=== PATIENT | male | born 1995 | race Caucasian/White ===

== ENCOUNTER 2017-06-15 13:02 | Emergency (ER) | payer BC ==
[~2017-06-15] VITALS: Ht 180.3 cm; Wt 77.0 kg
[2017-06-15 13:04] VITALS: TEMP 36.7; Ht 180.3 cm; Wt 77.0 kg
[2017-06-15] MEDS ORDERED: SODIUM CHLORIDE 0.9% 1000ML 1,000 ML IV STA (13:40)
[2017-06-15 14:01] LABS: URINE APPEARANCE CLEAR (CLEAR); URINE BILIRUBIN NEG (NEG); URINE COLOR YELLOW; URINE NITRITE NEG (NEG); URINE SPECIFIC GRAVITY 1.011 (1.000-1.030); UROBILINOGEN NEG (NEG); ZZUR CULT IF INDIC CLEAN CATCH NO
[2017-06-15 14:07] LABS: MANUAL MICROSCOPIC REQUIRED? NO; REVIEW REQ? NO
[2017-06-15 14:39] LABS: BASO % 0.3 %; BASO ABS # 0.02 K/uL (0-0.2); COMPLETE YES; EOS % 0.1 %; HEMATOCRIT 42.2 % (42-52); IG% 0.1 %; LYMPH % 17.6 %; LYMPH ABS # 1.28 K/uL (1.2-3.4); MEAN CELL VOLUME 85.8 fL (80-100); MEAN CORPUSCULAR HEMOGLOBIN 29.3 pg (25-34); MEAN CORPUSCULAR HGB CONC 34.1 g/dl (32-36); MEAN PLATELET VOLUME 12.4 fL (7.4-10.4); MONO % 5.4 %; NEUT % 76.5 %; PLATELET COUNT 197 K/uL (130-400); RED BLOOD COUNT 4.92 M/uL (4.7-6.1); WHITE BLOOD COUNT 7.28 K/uL (4.8-10.8)
--- NOTE | 2017-06-15 14:49 | DIAGNOSTIC IMAGING REPORT ---
ULTRASOUND RIGHT UPPER QUADRANT ABDOMEN CLINICAL HISTORY: Vomiting. COMPARISON STUDY: No priors. TECHNIQUE: Real-time, grayscale, and color flow sonography of the right upper quadrant of the abdomen was performed. Images are reviewed in the transverse and longitudinal planes. FINDINGS: Liver: The liver is normal in size and echotexture. There is no intrahepatic biliary ductal dilatation. The main portal vein is patent. Gallbladder: The gallbladder is normal in appearance. No gallstones are identified. There is no gallbladder wall thickening or pericholecystic fluid. A sonographic Koroma's sign is reportedly absent. The common bile duct measures up to 0.3 cm in diameter. Pancreas: Visualized portions of the pancreatic head and body are normal in appearance. Right kidney: Survey images of the right kidney demonstrate normal size and echotexture. There is no hydronephrosis. Ascites: None. IMPRESSION: Unremarkable sonographic assessment of the right upper quadrant. No gallstones are identified. Electronically signed by: Victor M Tran M.D. 06/15/2017 2:47 PM Dictated Date/Time: 06/15/2017 2:47 PM
[2017-06-15] MEDS ORDERED: NXM/40 PO (15:05)
[2017-06-15] MEDS ORDERED: ONDA4TAB46 PO (15:05)
[2017-06-15] MEDS ORDERED: ZNTT/150 PO (15:05)
--- NOTE | 2017-06-15 15:05 | EMERGENCY ROOM VISIT NOTE ---
History First contact with patient: 13:27 Chief Complaint: GI ASSESSMENT Stated Complaint: STOMACH ISSUES, VOMITING Nursing Triage Summary: pt to the ED after being sent over from [facility] with concern for his gallbladder c/o pain that gets worse after eating and pain is intermittant History of Present Illness The patient is a 21 year old male who presents to the Emergency Room with complaints of vomiting for the past one week. The patient states that he has had nausea and vomiting intermittently for one week. The vomiting is worse in the morning. He states that his stomach has felt queasy, but denies abdominal pain. He has not been able to eat much. He saw his shoeshiner at home before coming to school and they thought he may have reflux. They started him on Zantac and he states he has not had relief with this. His stools have been slightly loose. He denies any fevers/chills, chest pain, shortness of breath, hematemesis, melena, hematochezia or urinary symptoms. He denies any previous abdominal issues or abdominal surgeries. He drinks alcohol occasionally, but denies any recent alcohol intake. He was seen by [facility] this morning and switched from Zantac to Nexium. He was told that if his symptoms do not improve , he should come here for evaluation of his gallbladder. Review of Systems A complete 10 point review of systems was reviewed with the patient with pertinent positives and negatives as per history of present illness. All else were negative. Social History Smoking Status: Never Smoker Alcohol Use: occasionally Marital Status: single Housing Status: lives with roommate Occupation Status: [employer] student Current/Historical Medications Scheduled Esomeprazole Magnesium (Nexium), 40 MG PO DAILY Ranitidine (Zantac), 150 MG PO DAILY Scheduled PRN Ondansetron Hcl (Zofran), 4 MG PO Q8 PRN for Nausea Physical Exam Vital Signs Date Time Temp Pulse Resp B/P (MAP) Pulse Ox O2 Delivery O2 Flow Rate FiO2 06/15/17 15:32 69 149/54 97 Room Air 06/15/17 13:04 36.7 80 18 126/77 98 Room Air Physical Exam VITALS: Vitals are noted on the nurse's note and reviewed by myself. Vital signs stable. GENERAL: This is a 21-year-old male, in no acute distress, nondiaphoretic, well- developed well-nourished. SKIN: Capillary reflex less than 2 seconds. HEENT: Normocephalic. PERRLA. Mucous membranes moist. Neck is supple without nuchal rigidity. HEART: Regular rate and rhythm without murmurs gallops or rubs. LUNGS: Clear to auscultation bilaterally without wheezes, rales or rhonchi. ABDOMEN: Positive bowel sounds x 4. Soft, nontender to palpation. NEURO: Patient was alert and oriented to person place and time. Medical Decision & Procedures ER Provider Diagnostic Interpretation: ULTRASOUND RIGHT UPPER QUADRANT ABDOMEN FINDINGS: Liver: The liver is normal in size and echotexture. There is no intrahepatic biliary ductal dilatation. The main portal vein is patent. Gallbladder: The gallbladder is normal in appearance. No gallstones are identified. There is no gallbladder wall thickening or pericholecystic fluid. A sonographic Koroma's sign is reportedly absent. The common bile duct measures up to 0.3 cm in diameter. Pancreas: Visualized portions of the pancreatic head and body are normal in appearance. Right kidney: Survey images of the right kidney demonstrate normal size and echotexture. There is no hydronephrosis. Ascites: None. IMPRESSION: Unremarkable sonographic assessment of the right upper quadrant. No gallstones are identified. Laboratory Results 06/15/17 13:30 Red Blood Count 4.92, Mean Corpuscular Volume 85.8, Mean Corpuscular Hemoglobin 29.3, Mean Corpuscular Hemoglobin Concent 34.1, Mean Platelet Volume 12.4, Neutrophils (%) (Auto) 76.5, Lymphocytes (%) (Auto) 17.6, Monocytes (%) (Auto) 5.4, Eosinophils (%) (Auto) 0.1, Basophils (%) (Auto) 0.3, Neutrophils # (Auto) 5.57, Lymphocytes # (Auto) 1.28, Monocytes # (Auto) 0.39, Eosinophils # (Auto) 0.01, Basophils # (Auto) 0.02 06/15/17 15:05 Test 06/15/17 13:30 06/15/17 15:05 White Blood Count 7.28 K/uL (4.8-10.8) Red Blood Count 4.92 M/uL (4.7-6.1) Hemoglobin 14.4 g/dL (14.0-18.0) Hematocrit 42.2 % (42-52) Mean Corpuscular Volume 85.8 fL (80-100) Mean Corpuscular Hemoglobin 29.3 pg (25-34) Mean Corpuscular Hemoglobin Concent 34.1 g/dl (32-36) Platelet Count 197 K/uL (130-400) Mean Platelet Volume 12.4 fL (7.4-10.4) Neutrophils (%) (Auto) 76.5 % Lymphocytes (%) (Auto) 17.6 % Monocytes (%) (Auto) 5.4 % Eosinophils (%) (Auto) 0.1 % Basophils (%) (Auto) 0.3 % Neutrophils # (Auto) 5.57 K/uL (1.4-6.5) Lymphocytes # (Auto) 1.28 K/uL (1.2-3.4) Monocytes # (Auto) 0.39 K/uL (0.11-0.59) Eosinophils # (Auto) 0.01 K/uL (0-0.5) Basophils # (Auto) 0.02 K/uL (0-0.2) RDW Standard Deviation 40.9 fL (36.4-46.3) RDW Coefficient of Variation 13.0 % (11.5-14.5) Immature Granulocyte % (Auto) 0.1 % Immature Granulocyte # (Auto) 0.01 K/uL (0.00-0.02) Urine Color YELLOW Urine Appearance CLEAR (CLEAR) Urine pH 6.0 (4.5-7.5) Urine Specific [place] 1.011 (1.000-1.030) Urine Protein NEG (NEG) Urine Glucose (UA) NEG (NEG) Urine Ketones NEG (NEG) Urine Occult Blood NEG (NEG) Urine Nitrite NEG (NEG) Urine Bilirubin NEG (NEG) Urine Urobilinogen NEG (NEG) Urine Leukocyte Esterase NEG (NEG) Lipase 79 U/L (73-393) Anion Gap 7.0 mmol/L (3-11) Est Creatinine Clear Calc Drug Dose 144.2 ml/min Estimated GFR () 144.0 Estimated GFR (Non- 124.2 BUN/Creatinine Ratio 13.9 (10-20) Calcium Level 8.6 mg/dl (8.5-10.1) Total Bilirubin 0.5 mg/dl (0.2-1) Direct Bilirubin 0.1 mg/dl (0-0.2) Aspartate Amino Transf (AST/SGOT) 12 U/L (15-37) Alanine Aminotransferase (ALT/SGPT) 17 U/L (12-78) Alkaline Phosphatase 81 U/L (45-117) Total Creatine Kinase 92 U/L (39-308) Total Protein 7.2 gm/dl (6.4-8.2) Albumin 4.0 gm/dl (3.4-5.0) Medications Administered Medications (Trade) Dose Ordered Sig/Toby Route Start Time Stop Time Status Last Admin Dose Admin Sodium Chloride 1,000 ml @ 999 mls/hr Q1H1M STAT IV 06/15/17 13:40 06/15/17 14:40 DC 06/15/17 14:03 999 MLS/HR Medical Decision Differential diagnosis includes gallbladder disease, pancreatitis, colitis, gastroenteritis, GERD, among others. The patient is a 21-year-old male who presents today complaining of vomiting. The patient's exam showed no abdominal tenderness to palpation. Labs revealed no leukocytosis, anemia or concerning electrolyte abnormalities. LFTs were normal. Lipase was not elevated. I did not feel that these symptoms were secondary to gallbladder disease given the patient's lack of any abdominal tenderness, however he was very concerned after being told at [facility] that he needed a gallbladder ultrasound. For this reason, ultrasound was performed. This was read by radiology with no acute findings. The patient was reassured and instructed to continue Nexium. Lifestyle changes were discussed with the patient. Based on the patient's presentation and work up, I feel the patient is stable for outpatient treatment. The patient was educated to return to the emergency department for any worsening of their current condition or new/concerning symptoms. He will follow up with [facility]. Medication Reconcilliation Current Medication List: was personally reviewed by me Blood Pressure Screening Patient's blood pressure: Elevated blood pressure Blood pressure disposition: Elevated BP felt to be situational Impression Primary Impression: Vomiting Departure Information Dispostion Home / Self-Care Condition GOOD Referrals No Doctor, Assigned (PCP) Patient Instructions ED GERD, GERD Lifestyle Changes, My [facility] Additional Instructions You have been treated in the Emergency Department for your suspected Gastroesophageal Reflux Disease or GERD for short. Laboratory results and Imaging studies have ruled out any other emergent or surgical gastrointestinal issues. Continue the omeprazole as prescribed. This is a drug that will help with any possible indigestion that might be contributing to your pain/discomfort. You should take this medicine EVERY day for the best results. This medicine is not intended to be used for immediate relief of symptoms, but rather to reduce the risk of recurrence of symptoms. You can consider using TUMS for relief of any indigestion that you might be experiencing. This drug is fast acting and can be used for immediate relief of your indigestion symptoms. You should eat a bland diet for the next few days. Some suggested bland dietary foods: Bananas, Rice, Applesauce, [place], or Boiled Chicken. These foods are easy to digest and help you to recover at a faster rate. 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 For pain control, you can use the following [id number] medicines (if >12 yo): - Regular strength (325mg/tab) Tylenol (acetaminophen) 2 tabs every 4-6 hours as needed. Do not exceed 12 tablets in a 24 hour period. Avoid taking more than 4 grams (4000 mg) of Tylenol per day. This includes any other sources of acetaminophen you may take on a regular basis. You should schedule a follow-up appointment with [facility] in 1-2 weeks for further evaluation from today's Emergency Department visit. They may also refer you to a [facility] Path Therapist, a doctor who specializes in the digestive system. Return to the Emergency Department if your current symptoms worsen despite treatment course outlined above, or if you develop any of the following symptoms : worsening abdominal pain, associated chest or back pain, worsening nausea/ vomiting, dizziness, shortness of breath, blood in your vomit, or fainting.
[2017-06-15 15:32] VITALS: BP 149/54; PULSE 69; O2SAT 97
[2017-06-15 15:35] LABS: BUN/CREATININE RATIO 13.9 (10-20); CALCIUM 8.6 mg/dl (8.5-10.1); CREATININE 0.87 mg/dl (0.60-1.40); POTASSIUM 4.4 mmol/L (3.5-5.1)
== END 2017-06-15 16:16 | disposition home or self-care (01) ==
LOC: C.EDB 13:03 → C.EDC 16:16
DX: R11.2 Nausea with vomiting, unspecified (principal)